=== PATIENT | female | born 2000 | race Caucasian/White ===

== ENCOUNTER 2021-10-27 20:29 | Emergency (ER) | payer BC ==
[~2021-10-27] VITALS: Ht 165.1 cm; Wt 96.2 kg
[2021-10-27] MEDS ORDERED: NOVOLOG100 UNIT/2 SUBQ (20:45)
[2021-10-27 21:42] LABS: ABSOLUTE BASOPHILS 0.1 thou/uL (0.0-0.2); ABSOLUTE LYMPHOCYTES 1.2 thou/uL (0.8-5.3); ABSOLUTE MONOCYTES 0.5 thou/uL (0.0-1.2); ABSOLUTE NEUTROPHILS 8.6 thou/uL (1.6-8.1); BASOPHILS 0.5 %; EOSINOPHILS 0.1 %; HEMATOCRIT 37.3 % (37.0-47.0); HEMOGLOBIN 12.6 gm/dL (12.0-15.0); LYMPHOCYTES 11.9 %; MCH 27.6 pg (26.0-34.0); MCHC 33.9 g/dL (28.0-37.0); MCV 81.4 fL (80.0-100.0); MPV 9.7 fl. (7.2-11.1); NUCLEATED RBCS 0 /100WBC; PLATELET COUNT* 251 thou/uL (150-400); POLYS 82.5 %; RBC 4.59 mil/uL (4.20-5.00); RDW-CV 14.6 % (10.5-14.5); WBC 10.4 thou/uL (4.0-11.0)
[2021-10-27 21:46] LABS: CALCIUM 8.9 mg/dL (8.5-10.1); CREATININE 0.8 mg/dL (0.6-1.3); POTASSIUM 3.4 mmol/L (3.5-5.1)
[2021-10-27 22:29] LABS: URINE BLOOD 3+ (Negative); URINE CLARITY CLEAR; URINE COLOR YELLOW; URINE GLUCOSE-RANDOM 1+ (Negative); URINE LEUKOCYTES-REFLEX NEGATIVE (Negative); URINE NITRITE-REFLEX NEGATIVE (Negative); URINE PROTEIN 1+ (Negative); URINE SPECIFIC GRAVITY >= 1.030 (1.005-1.030); URINE UROBILINOGEN 0.2 E.U./dl (0.2-1.0)
[2021-10-27 22:39] LABS: ACETEST (KETONE CONFIRMATORY) Large (Negative); ICTOTEST (BILI CONFIRMATORY) Negative (Negative); URINE BILIRUBIN 1+ (Negative); URINE KETONES 3+ (Negative)
[2021-10-27 22:54] LABS: BACTERIA-REFLEX 1-9 Few /HPF (None Seen); CASTS None Seen /LPF (None Seen); CRYSTALS None Seen /LPF (None Seen); MUCUS 0-3 Light strn/LPF (None Seen); SQUAMOUS >10 Many /LPF (0-3); URINE WBC-REFLEX 0-5 Rare /HPF (0-5)
[2021-10-28] MEDS ORDERED: HYDROCODON-ACE1 EAC8 PO (00:04)
[2021-10-28 00:47] VITALS: BP 146/99
--- NOTE | 2021-10-28 09:11 | EKG ---
[place] [address] ELECTROCARDIOGRAM REPORT Name: SHIRA CASTRO Room: [facility]#: [id number] Admission: 10/27/21 Attend Phys: Discharge: 10/28/21 Date of : 2 Date of Service: 10/27/212119 Report #: [id number] THIS REPORT FOR: //name// [facility] ED Test Date: 2021-10-27 Test Time: 21:20:21 Pat Name: SHIRA CASTRO Department: Room: Gender: F [employer]oll Mechanic: : 2000 Requested By: Anil Johnson Order Number: [id number] MD: Chriss Banuelos Measurements Intervals Edson Rate: 100 P: 58 ID: [id number] QRS: 83 QRSD: 85 T: 20 QT: 358 QTc: 462 Interpretive Statements Sinus tachycardia RSR' in V1 or V2, right VCD No previous ECG available for comparison Electronically Signed On 10-28-2021 9:11:31 REGISTERED ACCOUNT ADMINISTRATOR by Chriss Banuelos [email or web address] <ELECTRONICALLY SIGNED> By: Chriss Banuelos MD, [facility] 10/28/21910 19 19 Chriss Banuelos MD, [facility] /EPI
== END 2021-10-28 00:49 | disposition home or self-care (01) ==
LOC: M.ERS 20:29
PROVIDERS: Physician Assistant Medical
DX: O99.511 Diseases of the respiratory system complicating pregnancy, first trimester (principal); O21.8 Other vomiting complicating pregnancy; O24.011 Pre-existing type 1 diabetes mellitus, in pregnancy, first trimester; J11.1 Influenza due to unidentified influenza virus with other respiratory manifestations; Z3A.12 12 weeks gestation of pregnancy; Z90.49 Acquired absence of other specified parts of digestive tract; Z79.4 Long term (current) use of insulin